=== PATIENT | male | born 1975 | race Hispanic/Latino ===

== ENCOUNTER 2020-01-28 01:34 | Emergency (ER) | payer BC ==
[~2020-01-28] VITALS: Ht 170.2 cm; Wt 165.6 kg
--- OUTSIDE RECORDS SUMMARY | 2020-01-28 01:36 | XMS REPORT ---
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 Allergies, Adverse Reactions, Alerts Allergy Name Allergy Type Status Severity Reaction(s) Onset Date Inactive Date Treating Clinician Comments No Known Allergies DA Active U 2018-11-07 00:00:00 No Known Allergies DA Active U 2018-04-20 00:00:00 Medications This patient has no known medications.
[2020-01-28] MEDS: ACETAMINOPHEN 325 MG TAB PO ONE ×2 (02:00)
[2020-01-28] MEDS ORDERED: ACETAMINOPHEN 325 MG TAB ONE (02:03)
[2020-01-28 02:07] VITALS: BP 178/91
== END 2020-01-28 02:07 | disposition home or self-care (01) ==
LOC: FSED 01:34
DX: L73.9 Follicular disorder, unspecified (principal)
CPT/HCPCS: 10060; 99283

== ENCOUNTER 2021-07-11 13:55 | Emergency (ER) | payer BC ==
[~2021-07-11] VITALS: Ht 170.2 cm; Wt 165.6 kg
[2021-07-11 15:00] LABS: BASOPHILS % 0.6 % (0.0-1.0); EOSINOPHILS # (AUTO) 0.2 (0.0-0.4); EOSINOPHILS % 2.9 % (0.0-6.0); HEMATOCRIT 47.1 % (38.2-49.6); HEMOGLOBIN 15.6 g/dL (14.0-18.0); LYMPHOCYTES # (AUTO) 2.6 (1.0-3.2); LYMPHOCYTES % 39.1 % (18.0-39.1); MEAN CORPUSCULAR HGB CONC 33.1 g/dL (31-35); MEAN CORPUSCULAR VOLUME 96.7 fL (81-99); MONOCYTES # (AUTO) 0.6 (0.2-0.8); MONOCYTES % 9.5 % (4.4-11.3); NEUTROPHILS # (AUTO) 3.2 (2.1-6.9); NEUTROPHILS % 47.6 % (38.7-80.0); PLATELET COUNT 148 x10e3/uL (140-360); RED BLOOD COUNT 4.87 x10e6/uL (4.3-5.7); RED CELL DISTRIBUTION WIDTH 12.2 % (11.7-14.4)
[2021-07-11 15:25] LABS: ALBUMIN 3.5 g/dL (3.5-5.0); ALBUMIN/GLOBULIN RATIO 0.7 (0.8-2.0); ANION GAP 21.8 mmol/L (8-16); CREATININE, SERUM 1.37 mg/dL (0.72-1.25); MAGNESIUM 1.6 MG/DL (1.3-2.1); POTASSIUM 3.8 mmol/L (3.5-5.1)
== END 2021-07-11 17:16 | disposition home or self-care (01) ==
LOC: ER 14:38
DX: R20.2 Paresthesia of skin (principal); I10 Essential (primary) hypertension; E11.65 Type 2 diabetes mellitus with hyperglycemia; E78.5 Hyperlipidemia, unspecified; I50.9 Heart failure, unspecified
CPT/HCPCS: 36415; 70450; 71045; 80053; 82550; 82553; 83735; 83880; 84484; 85025; 93005; 99284